=== PATIENT | female | born 1950 | race African-American/Black ===

== ENCOUNTER 2021-11-02 19:30 | Emergency (ER) | payer MEDICARE, OTHER ==
[~2021-11-02] VITALS: Ht 160 cm; Wt 95.0 kg
[2021-11-02 19:37] VITALS: BP 187/86
[2021-11-02] MEDS ORDERED: P20 MT (23:24)
[2021-11-02] MEDS ORDERED: CETI5TAB5 MT (23:24)
[2021-11-02] MEDS ORDERED: PREDNISONE 20MG TABLET PO ONE (23:30)
[2021-11-02] MEDS ORDERED: CETIRIZINE 10MG TABLET PO SCH (23:30)
== END 2021-11-02 23:50 | disposition home or self-care (01) ==
LOC: ER 19:30
DX: T78.3XXA Angioneurotic edema, initial encounter (principal); I10 Essential (primary) hypertension; Z90.49 Acquired absence of other specified parts of digestive tract; Z90.710 Acquired absence of both cervix and uterus; Z85.41 Personal history of malignant neoplasm of cervix uteri; Z91.018 Allergy to other foods; Z88.0 Allergy status to penicillin
CPT/HCPCS: 99283; J7512